=== PATIENT | male | born 2000 | race Caucasian/White ===

== ENCOUNTER 2018-07-12 18:12 | Emergency (ER) | payer OTHER ==
[~2018-07-12] VITALS: Ht 175.3 cm; Wt 77.1 kg
[~2018-07-12 18:12] MED LIST: CETI5 PO; DIPH25 PO; MEBE100 PO; PRED5 PO
== END 2018-07-12 19:36 | disposition home or self-care (01) ==
LOC: ER 18:12
DX: S61.210A Laceration without foreign body of right index finger without damage to nail, initial encounter (principal); Z88.0 Allergy status to penicillin; W26.8XXA Contact with other sharp object(s), not elsewhere classified, initial encounter
CPT/HCPCS: 12002; 99282-25